=== PATIENT | male | born 1990 | race Caucasian/White ===

== ENCOUNTER 2021-10-01 14:05 | Emergency (ER) | payer SELFPAY ==
[2021-10-01 14:08] VITALS: BP 129/78; PULSE 81; RESP 16; TEMP 36.7; O2SAT 97
--- NOTE | 2021-10-01 14:15 | ED.URI ---
HPI - URI/Sore Throat General Chief Complaint: Upper Respiratory Infection Stated Complaint: Chest Congestion Time Seen by Provider: 10/01/21 14:15 Source: patient and RN notes reviewed History of Present Illness HPI Narrative: Patient is a 31-year-old male who presents the urgent care with complaints of chest congestion, runny nose, postnasal drainage and dry cough. Patient states is been going on approximately a week and a half and he has been taking Naty without much improvement. Patient denies any fevers, nausea or vomiting. Also reports of a rash under the left axilla. Patient states is been there for couple days and he has been using antibiotic ointment on it. No other acute complaints. No acute distress noted. Patient aware of the plan of care. Some parts of this dictation were generated by voice recognition software and may contain typographical and/or grammatical inaccuracies. Related Data Allergies Allergy/AdvReac Type Severity Reaction Status Date / Time No Known Allergies Allergy Unknown Unverified 10/01/21 14:38 Review of Systems Review of Systems: CONSTITUTIONAL: Denies fever, chills, or sweats. EYES: Denies visual changes, redness, or discharge. ENT: Reports of congestion, rhinorrhea, postnasal drainage CARDIOVASCULAR: Denies chest pain, palpitations, or edema. RESPIRATORY: Reports of cough without dyspnea GASTROINTESTINAL: Denies abdominal pain, nausea, vomiting, or diarrhea. GENITOURINARY: Denies dysuria or hematuria. SKIN: Reports of an itchy burning rash under the left axilla MUSCULOSKELETAL: Denies back pain, joint pain, or myalgia. NEUROLOGIC: Denies headache, numbness, or weakness. All other systems reviewed are negative, except as documented in HPI. PMFSH Comments At the time of my signature, I reviewed and agree with the nursing past medical, surgical, social, and family history. There is no relevant family history pertinent to the patient complaint. Exam Narrative: GENERAL: This is a well-nourished, well-developed patient, in no apparent distress. HEAD: normocephalic, atraumatic. EYES: PERRL. Sclera clear/white. Vision is grossly intact. EARS: External ears normal, auditory canals clear and without drainage, moderately erythemic and injected left TM. Right TM normal without perforation. Hearing grossly intact. NOSE: External nose normal with no obvious nasal discharge, nares without redness, clear to yellow rhinorrhea. THROAT: Mucous membranes moist, posterior pharynx clear. Moderate postnasal drainage NECK: Neck supple CARDIOVASCULAR: Regular rate and rhythm without murmurs, gallops, or rubs. RESPIRATORY: Bilateral upper inspiratory wheezes. Harsh cough noted throughout exam SKIN: 6 x 4 cm erythemic candidal dermatitis to the left axilla. Warm, intact with no suspicious lesions or rash, good texture and turgor. NEURO: awake, alert, and oriented to person, place and time. There were no obvious focal neurologic abnormalities. EXTREMITIES: No clubbing, cyanosis, or edema. Course Course Level of Care: Express Care Visit Vital Signs Vital signs: Vital Signs Temperature 98.1 F 10/01/21 14:08 Pulse Rate 81 10/01/21 14:08 Respiratory Rate 16 10/01/21 14:08 Blood Pressure 129/78 10/01/21 14:08 Pulse Oximetry 97 10/01/21 14:08 Temperature 98.1 F 10/01/21 14:08 Pulse Rate 81 10/01/21 14:08 Respiratory Rate 16 10/01/21 14:08 Blood Pressure 129/78 10/01/21 14:08 Pulse Oximetry 97 10/01/21 14:08 Reviewed MDM - URI/Sore Throat MDM Narrative Medical decision making narrative: Advised the patient to keep the underarm very dry. Use the nystatin powder as directed. Complete the oral antibiotic regimen for the left ear infection as directed and complete the steroid regimen as prescribed. Use the inhaler as needed for wheezes or cough. If you develop any increase in symptoms associated with chest pain or shortness of breath?go to the emergency room. Continue your mady
== END 2021-10-01 14:55 | disposition home or self-care (01) ==
PROVIDERS: Emergency Provider Nurse Practitioner Family
DX: J40 Bronchitis, not specified as acute or chronic (principal); H66.92 Otitis media, unspecified, left ear
CPT/HCPCS: 99203; G0463

== ENCOUNTER 2021-12-04 09:31 | Emergency (ER) | payer OTHER, SELFPAY ==
--- NOTE | 2021-12-04 09:35 | ED.SKABFB ---
HPI - Skin/Abscess/Foreign Bdy General Chief complaint: Skin/Abscess/Foreign Body Stated complaint: Rash and pain in right armpit Time Seen by Provider: 12/04/21 09:57 Source: patient and RN notes reviewed Mode of arrival: ambulatory Limitations: no limitations History of Present Illness HPI narrative: 31-year-old male presents concern for painful rash under his right arm. He reports the area started couple days ago and has been getting more raw and more painful. He denies any injury to the area. He reports drainage from the area. He reports he started using a new deodorant about 2 months ago. He denies fever, body aches, chills, sweats, pain in the arm itself. MD complaint: rash Related Data Allergies Allergy/AdvReac Type Severity Reaction Status Date / Time No Known Allergies Allergy Unknown Unverified 12/04/21 09:43 Review of Systems Review of Systems: CONSTITUTIONAL: Denies malaise, chills, sweats, or fever. EYES: Denies redness, or discharge. ENT: Denies rhinorrhea, congestion, swollen lips, swollen tongue CARDIOVASCULAR: Denies chest pain, palpitations, or edema. RESPIRATORY: Denies cough or dyspnea. GASTROINTESTINAL: Denies abdominal pain, nausea, vomiting SKIN: Reports painful rash in the right axilla MUSCULOSKELETAL: Denies joint painor myalgia. NEUROLOGIC: Denies headache. All systems reviewed & are unremarkable except as noted in HPI and below PMFSH Comments At time of signature, agree with nursing past medical, surgical, social and family history. There is no relevant family history pertinent to the presenting complaint Exam Narrative: GENERAL: Well-appearing, well-nourished, and in no acute distress. HEAD: Normocephalic, atraumatic. EYES: PERRLA, conjunctivae clear, and EOMI. ENT: Mucous membranes moist. Oropharynx without edema, erythema or lesions. NECK: Supple. No lymphadenopathy CHEST: Clear to auscultation. No respiratory distress. HEART: Regular rate and rhythm. SKIN: Warm, dry. Approximately 5 cm linear area of erythema, induration, excoriation with 1.5 cm area of open tissue with drainage noted, occasional vesicles. NEURO: Alert and oriented x3. PSYCH: Normal mood and affect Course Course Emergency Course: Patient is aware of diagnosis, understands and agrees to treatment plan. Anticipatory guidance given. Patient agrees to follow-up as directed and is aware of reasons to seek care at the emergency department. Portions of this record may have been created with voice recognition software Level of Care: Express Care Visit Vital Signs Vital signs: Reviewed. MDM - Skin/Abscess/Foreign Bdy MDM Narrative Medical decision making narrative: Does not appear at this time to be erythema multiforme, bullous, SJS, TEN; no evidence at this time to suggest RMSF, endocarditis or Lyme disease; patient looks well, nontoxic and is tolerating oral intake; no neurologic signs or symptoms; no headache, photophobia or neck pain; afebrile; appropriate for initial outpatient treatment; discussed the importance of follow-up, patient agrees; question, viral exanthema, contact dermatitis, allergic dermatitis, eczema, urticaria,cellulitis, yeast rash, abscess. No soft palate or uvula edema, no tongue, lip edema or other mucosal involvement, no respiratory compromise, no stridor, no wheezing, no wheezing, no history of syncope, no hypotension, no nausea, vomiting, or diarrhea. Instructed patient to go to nearest ER immediately for any worsening symptoms including but not limited to: fever, spreading rash, pain, sore throat, headache, dizziness, chest pain, trouble breathing, or any symptoms concerning to the patient. Critical Care Time Critical Care Time Critical Care Time: No Discharge Plan Discharge Clinical Impression: Skin infection Patient Disposition: Home, Self-Care Condition: Stable Instructions: Antibiotic Form, Skin Yeast Infection (ED) Additional Instructions: Wash the area twice daily wi
[2021-12-04 09:38] VITALS: BP 179/99; PULSE 103; RESP 20; TEMP 36.8; O2SAT 98
--- NOTE | 2021-12-04 10:17 | PC.NURSE ---
10:10 SILVADENE CREAM APPLIED TO WOUND.
== END 2021-12-04 10:13 | disposition home or self-care (01) ==
PROVIDERS: Emergency Provider Nurse Practitioner
DX: L08.9 Local infection of the skin and subcutaneous tissue, unspecified (principal)
CPT/HCPCS: 99213; A9270; G0463

== ENCOUNTER 2022-12-26 16:00 | Emergency (ER) | payer OTHER, SELFPAY ==
--- NOTE | 2022-12-26 16:06 | ED.SKABFB ---
HPI - Skin/Abscess/Foreign Bdy General Chief complaint: Skin/Abscess/Foreign Body Stated complaint: Swelling of Legs/Rash Time Seen by Provider: 12/26/22 16:22 Source: patient and RN notes reviewed Mode of arrival: ambulatory Limitations: no limitations History of Present Illness HPI narrative: 32-year-old male presents with concern of for bilateral lower extremity edema. He had left knee surgery in June, and the left lower extremity has been swollen since that time. He reports the right lower leg has been swollen for about a month. He denies injury or trauma. He denies warmth, tenderness. He reports he has gained about 50 lb since June. He reports some discoloration noted on the top of his right foot. He denies fever, aches, chills, sweats. Denies shortness of breath or heart palpitations. 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 He denies any open skin, rash MD complaint: other (edema) Related Data Allergies Allergy/AdvReac Type Severity Reaction Status Date / Time No Known Allergies Allergy Unknown Verified 12/26/22 16:28 Review of Systems Review of Systems: CONSTITUTIONAL: Denies malaise, chills, sweats, or fever. CARDIOVASCULAR: Denies chest pain, palpitations RESPIRATORY: Denies cough or dyspnea. SKIN: Denies rash or itching, bruising, redness, swelling. MUSCULOSKELETAL: Reports bilateral lower extremity edema NEUROLOGIC: Denies numbness, weakness All systems reviewed & are unremarkable except as noted in HPI and below PMFSH Comments At time of signature, agree with nursing past medical, surgical, social and family history. There is no relevant family history pertinent to the presenting complaint Exam Narrative: GENERAL: Well-appearing, well-nourished, and in no acute distress. HEAD: Normocephalic, atraumatic. EYES: PERRLA, conjunctivae clear NECK: Supple. CHEST: Speaks in full sentences. No respiratory distress. HEART: Regular rate and rhythm. Normal and equal peripheral pulses. EXTREMITIES: Bilateral lower extremities, ankle, feet have grossly normal strength and sensation, normal range of motion. No ecchymosis. Moderate 1+ pitting edema note to bilateral calf, ankles, feet. Normal sensation with sensitivity to light touch and pain. No tenderness. Small patch of petechiae noted to the dorsal right foot. No open wounds, no skin tenting, no atrophy, no obvious deformity, alignment normal, nearby joints and structures intact. Right distal pedal pulse palpable, left pedal pulse dopplerable, skin warm, dry, pink. Capillary refill less than 3 seconds. SKIN: Warm, dry, no rash. NEURO: Alert and oriented x3. PSYCH: Normal mood and affect Course Course Emergency Course: Patient is aware of diagnosis, understands and agrees to treatment plan. Anticipatory guidance given. Patient agrees to follow-up as directed and is aware of reasons to seek care at the emergency department. Portions of this record may have been created with voice recognition software Level of Care: Express Care Visit Vital Signs Vital signs: Reviewed. MDM - Skin/Abscess/Foreign Bdy MDM Narrative Medical decision making narrative: Exam findings show no acute concerns or changes; patient is non-toxic appearing and is in no distress. Patient is appropriate for outpatient treatment and follow-up. Differential Diagnosis Differential diagnosis: Likely cellulitis and other (edema, DVT) Critical Care Time Critical Care Time Critical Care Time: No Discharge Plan Discharge Clinical Impression: Bilateral leg edema Patient Disposition: Home, Self-Care Condition: Stable Instructions: Leg Edema (ED) Additional Instructions: 1) Please follow-up with your primary care doctor in the next 1-2 days. 2) If you have any worsening of symptoms or any other urgent concerns please go to the ER. 3) Please use compression stockings as directed. 4) Please read and follow information includ
[2022-12-26 16:08] VITALS: BP 160/90; PULSE 99; RESP 16; TEMP 36.3; O2SAT 98
== END 2022-12-26 16:43 | disposition home or self-care (01) ==
PROVIDERS: Emergency Provider Nurse Practitioner
DX: R60.0 Localized edema (principal)
CPT/HCPCS: 99213; G0463

== ENCOUNTER 2025-03-05 12:01 | Emergency (ER) | payer SELFPAY ==
[2025-03-05 12:16] VITALS: BP 152/88; PULSE 85; RESP 20; TEMP 36.6; O2SAT 99
--- NOTE | 2025-03-05 12:43 | ED_ITS ---
HPI - Dental/Oral General Chief complaint: Dental/Oral Stated complaint: Toothache Time Seen by Provider: 03/05/25 12:38 Source: patient, family () and RN notes reviewed Mode of arrival: ambulatory Limitations: no limitations History of Present Illness HPI Narrative: 34-year-old male patient presents today complaining of pain to the right anterior dental arch since last night. States he got a piece of beef jerky that poked in between a broken tooth and another tooth that then became swollen. Today his face is now swollen and his gumline is painful. Denies shortness of breath, difficulty swallowing, trismus. Currently rates pain 9.5/10. He has taken Tylenol and ibuprofen without much relief. Does not currently have a dentist. Related Data Allergies Allergy/AdvReac Type Severity Reaction Status Date / Time No Known Allergies Allergy Unknown Verified 03/05/25 12:05 [facility] Comments At time of signature, I have reviewed and agree with nursing past medical, surgical, social and family history unless otherwise noted. Please see nursing chart for further information. There is no relevant family history pertinent to the presenting complaint Exam Narrative: GENERAL: Well-appearing, well-nourished, and in no acute distress. HEAD: Normocephalic, atraumatic. EYES: EOMI. No redness or drainage. Conjunctivae normal. ENT: Mucous membranes pink and moist. Nares clear. No rhinorrhea. Poor dentition throughout. Tooth 5 is decayed. Adjacent to inch of is erythematous. There is some mild swelling of the face. No trismus. No neck swelling. NECK: Normal AROM. Supple. No lymphadenopathy. CHEST: No respiratory distress. EXTREMITIES: Normal range of motion. No edema. SKIN: Warm, dry, no rash. Capillary refill normal. Normal skin turgor. NEURO: No focal deficits. Alert and oriented x3. Gait steady. PSYCH: Normal affect. No signs of depression or anxiety. Course Course Level of Care: Express Care Visit Vital Signs Vital signs: Vital Signs Temperature 98 F 03/05/25 12:16 Pulse Rate 85 03/05/25 12:16 Respiratory Rate 20 03/05/25 12:16 Blood Pressure 152/88 H 03/05/25 12:16 Pulse Oximetry 99 03/05/25 12:16 Oxygen Delivery Room Air 03/05/25 12:16 Temperature 98 F 03/05/25 12:16 Pulse Rate 85 03/05/25 12:16 Respiratory Rate 20 03/05/25 12:16 Blood Pressure 152/88 H 03/05/25 12:16 Pulse Oximetry 99 03/05/25 12:16 Oxygen Delivery Room Air 03/05/25 12:16 Reviewed MDM - Dental/Oral MDM Narrative Medical decision making narrative: 34-year-old male patient presents today complaining of pain to the right anterior dental arch since last night. States he got a piece of beef jerky that poked in between a broken tooth and another tooth that then became swollen. Today his face is now swollen and his gumline is painful. Tooth 5 is decayed. Adjacent to inch of is erythematous. There is some mild swelling of the face. Patient will be given a prescription for amoxicillin and 3 days of prednisone to help with facial swelling. Also, a prescription for some chlorhexidine mouthw brian to help with his poor dentition. He will follow-up with a dentist as soon as possible. Patient agrees with plan. Anticipatory guidance and strict ED precautions given. Vital signs stable. Differential Diagnosis Differential diagnosis: Likely gingival abscess, dental caries, toothache, dental abscess and fracture of tooth Critical Care Time Critical Care Time Critical Care Time: No Discharge Plan Discharge Clinical Impression: Toothache, Gingivitis Patient Disposition: Home Condition: Stable Instructions: Antibiotic Form Additional Instructions: Please take the amoxicillin and prednisone as directed. Use the mouthwash as prescribed. Continue Tylenol or ibuprofen if needed for discomfort. Follow-up with a dentist as soon as possible. As discussed, please go to the ER immediately if you develop fever, difficulty breathing, swallowing, or opening your mouth properly. Patient Language: Estonian Prescriptions: New prednisone 20 mg tablet 40 mg PO DAILY 3 Days Qty: 6 0RF amoxicillin 875 mg tablet 875 mg PO Q12H 10 Days Qty: 20 0RF chlorhexidine gluconate 0.12 % mouthwash 15 ml buccal DAILY Qty: 120 0RF No Action (DME) compr.stocking,knee,long,x-lrg Misc See Rx Instructions .Route Qty: 4 0RF Rx Instructions: As directed Follow-up/Referrals: PHYSICIAN NOT ON STAFF,NONSTAFF [Primary Care Provider] Time of Disposition: 12:47
== END 2025-03-05 12:53 | disposition home or self-care (01) ==
PROVIDERS: Emergency Provider Nurse Practitioner
DX: K08.89 Other specified disorders of teeth and supporting structures (principal); K05.10 Chronic gingivitis, plaque induced
CPT/HCPCS: 99213; G0463

== ENCOUNTER 2025-04-13 08:21 | Emergency (ER) | payer MEDICAID, SELFPAY ==
[2025-04-13 08:26] VITALS: BP 192/139; PULSE 90; RESP 20; TEMP 36.5; O2SAT 100
--- OUTSIDE RECORDS SUMMARY | 2025-04-13 08:26 | XMS_ITS | Encounter Summary ---
Author Organization [facility] Address [address] [place] [address] Phone Care Team Providers Care Seo Associate Name Role Phone Isaac Gaines APRN, PRESS TENDER Primary Care Pr ovider Lesley Mendez APRN, CNP Unavailable [phone] Cholo Ledbetter MD Unavailable Reason for Visit * Reason Comments Medication Refill Encounter Details Date Type Department Care Team (Late st Contact Info) Description 08/31/2024 Refill [facility] - Family Medicine [facility] [address] [place] [id number] Isaac Gaines APRN, PRESS TENDER [address] [address] Medication Refill Social History Tobacco Use Types Packs/Day Years Used Date Smoking Tobacco: Former Cigarettes 1.5 13.1 S tarted: 03/16/2012 Smokeless Tobacco: Never Alcohol Use Standard Drinks/Week Comments Yes 0 (1 standard drink = 0.6 oz pur e alcohol) rare, 1-3 times a years Education Answer Date Recorded What is the highest level of school you have completed or the highest degree you have received? 11th grade 02/12/2023 Sexually Active Control Partners Comments Yes Sex and Gender Information Value Date Recorded Sex Assigned at Not on file Legal Sex Male 11:07 PM CDT Gender Identity Not on file Sexual Orientation Not on file documented as of this encounter Miscellaneous Notes * Telephone Encounter - Diana Choi RN - 08/31/2024 12:58 PM CDT Needs OV * Telephone Encounter - Diana Choi RN - 08/31/2024 12:58 PM CDT Per nursing clinical judgement, provider to review and approve the medication(s) order(s) if appropriate. Requested Prescriptions Pending Prescriptions Disp Refills metoprolol Succinate (TOPROL-XL) 50 MG TABLET SR 24 HR [Pharmacy Med Name: Metoprolol Succinate ER 50 MG Oral Tablet Extended Release 24 Hour] 30 Tablet 0 Sig: Take 1 tablet by mouth once daily Beta-Blockers Protocol Passed - 08/31/2024 12:58 PM Passed - BP on record in the past year Clinician-entered: BP Readings from Last 3 Encounters: 05/25/24 (!) 196/105 03/19/24 134/82 12/28/23 142/86 Patient-entered: No data recorded Passed - Visit with relevant provider in past 12 months or upcoming 90 days Recent Visits Date Type Provider Dept 10/17/23 Office Visit Isaac Gaines APRN, CNP [facility] Showing recent visits within past 365 days and meeting all other requirements Future Appointments No visits were found meeting these conditions. Showing future appointments within next 90 days and meeting all other requirements documented in this encounter Plan of Treatment Not on file documented as of this encounter Visit Diagnoses Diagnosis Primary hypertension Unspecified essential hypertension documented in this encounter Care Teams Seo Associate Relationship Specialty Start Date End Date Isaac Gaines APRN, CNP [id number] [address] PCP - General Advanced Practice Nurse 03/16/22 Lesley Mendez APRN, CNP [address] [facility] [address] [place] [address] Nurse Practitioner Advanced Practice Nurse 08/20/22 01/13/25 Cholo Ledbetter MD [address] [facility] [address] [place] [address] Consulting Physician General Surgery 10/18/23 documented as of this encounter
--- OUTSIDE RECORDS SUMMARY | 2025-04-13 08:26 | XMS_ITS | Encounter Summary ---
Author Organization [facility] Address [address] [place] [address] Phone Care Team Providers Care Digital Business Analyst Name Role Phone Isaac Gaines APRN, GENERAL STUDIES PROGRAM CHAIR Primary Care Pr ovider Lesley Mendez APRN, CNP Unavailable [phone]- [phone] Cholo Ledbetter MD Unavailable Reason for Visit * Reason Comments Medication Refill Encounter Details Date Type Department Care Team (Late st Contact Info) Description 04/25/2023 Refill [facility] - Family Medicine - [place] [address] [place] [id number] Isaac Gaines APRN, GENERAL STUDIES PROGRAM CHAIR [address] [address] Medication Refill Social History Tobacco Use Types Packs/Day Years Used Date Smoking Tobacco: Every Day Cigarettes 1.5 13.1 Started: 03/16/2012 Smokeless Tobacco: Never Alcohol Use Standard [...] encounter Miscellaneous Notes * Telephone Encounter - Martita Rossi RMA - 04/29/2023 10:35 AM MOLD MAINTENANCE TECHNICIAN scheduled MAINTENANCE TECHNICIAN * Telephone Encounter - Palma Gonzalez APRN, CNP - 04/26/2023 1:38 PM MOLD MAINTENANCE TECHNICIAN Needs appointment prior to refill with PCP MAINTENANCE TECHNICIAN * Telephone Encounter - Kira Leon RN - 04/26/2023 9:30 AM MOLD MAINTENANCE TECHNICIAN Medication failed the protocol, provider to review and approve the medication order if appropriate. Requested Prescriptions Pending Prescriptions Disp Refills Trulicity 1.5 MG/0.5ML Solution Pen-injector [Pharmacy Med Name: Trulicity 1.5 MG/0.5ML Subcutaneous Solution Pen-injector] 4 mL 0 Sig: INJECT 1.5 MG SUBCUTANEOUSLY ONCE A WEEK GLP-1 Agonists Protocol Failed - 04/25/2023 5:16 PM Failed - Lipid panel result on file in past 12 months LDL Date Value Ref Range Status 03/16/2022 86 5 - 130 mg/dL Final HDL CHOLESTEROL Date Value Ref Range Status 03/16/2022 29.7 (L) >40 mg/dL Final CHOLESTEROL Date Value Ref Range Status 03/16/2022 134 <=200 mg/dL Final TRIGLYCERIDES Date Value Ref Range Status 03/16/2022 90 <150 mg/dL Final VLDL Date Value Ref Range Status 03/16/2022 18 5 - 55 mg/dL Final CHOL/HDL RATIO Date Value Ref Range Status 03/16/2022 4.5 (H) 0.0 - 4.4 Final NON-HDL CHOLESTEROL Date Value Ref Range Status 03/16/2022 104.3 <130 mg/dL Final Failed - HgA1C result on record in past 6 months No results found for: HGBA1C Passed - Visit with relevant provider in past 6 months or upcoming 90 days Recent Visits Date Type Provider Dept 03/12/23 Office Visit Justus Dolan MD [facility] 02/12/23 Office Visit Isaac Gaines APRN, CNP [facility] 01/04/23 Office Visit [facility]aines APRN, [facility] Showing recent visits within past 182 days and meeting all other requirements Future Appointments No visits were found meeting these conditions. Showing future appointments within next 90 days and meeting all other requirements Passed - GFR on record in past 6 months GFR, EST. NONAFRICAN Date Value Ref Range Status 01/04/2023 >60 >=60 Final MAINTENANCE TECHNICIAN documented in this encounter Plan of Treatment Not on file documented as of this encounter Visit Diagnoses Diagnosis Prediabetes Other abnormal glucose documented in this encounter Care Teams Digital Business Analyst Relationship Specialty Start Date End Date Isaac Gaines APRN, [facility] [address] [facility] [address] [place] [address] PCP - General Advanced Practice Nurse 03/16/22 Lesley Mendez APRN, CNP [address] [facility] [address] [place] [address] Nurse Practitioner Advanced Practice Nurse 08/20/22 01/13/25 Cholo Ledbetter MD [address] [facility] [address] [place] [address] Consulting Physician General Surgery 10/18/23 documented as of this encounter
--- OUTSIDE RECORDS SUMMARY | 2025-04-13 08:26 | XMS_ITS | Clinical Summary ---
Author Organization [facility] [employer] [place] Address [address] [address] Care Team Providers Care Count Room Clerk Name Role Phone Unavailable Primary Care Provider Unavailabl e Allergies No known active allergies Medications No known medications Active Problems Problem Noted Date Diagnosed Date Morbid obesity with body mass index of 40.0-49.9 04/22/2020 Cigarette dependence 04/22/2020 Family History Medical History Relation Name Comments Other Daughter non verbal Diabetes Father Glaucoma Father Hypertension Father Stomach Cancer Maternal Grandfather Heart Failure Maternal Grandmother No Known Problems Mother Unknown Paternal Grandfather Cancer Paternal Grandmother Celiac Disease Sister Heart defect Son Other Son Relation Name Status Comments Daughter Alive Father Alive Maternal Grandfather Maternal Grandmother Alive Mother Alive Paternal Grandfather Paternal Grandmother Sister Alive Son Alive Social History Tobacco Use Types Packs/Day Years Used Date Smoking Tobacco: Every Day Cigarettes Smokeless Tobacco: Former Alcohol Use Standard Drinks/Week Comments Yes 0 (1 standard drink = 0.6 oz pur e alcohol) Sex and Gender Information Value Date Recorded Sex Assigned at Not on file Legal Sex Male 9:19 AM CUSTOMER SERVICE REP Gender Identity Not on file Sexual Orientation Not on file Last Filed Vital Signs Vital Sign Reading Time Taken Comments Blood Pressure 160/100 04/22/2020 1:29 PM CUSTOMER SERVICE REP Pulse 99 04/22/2020 1:02 PM CUSTOMER SERVICE REP Temperature 36.9 C (98.5 F) 04/22/2020 1:02 PM CUSTOMER SERVICE REP Respiratory Rate 18 04/22/2020 1:02 PM CUSTOMER SERVICE REP Oxygen Saturation 97% 04/22/2020 1:02 PM CUSTOMER SERVICE REP Inhaled Oxygen Concentration - - Weight 156.9 kg (346 lb) 04/22/2020 1:02 PM CUSTOMER SERVICE REP Height 180.3 cm (5' 11) 04/22/2020 1:02 PM CUSTOMER SERVICE REP Body Mass Index 48.26 04/22/2020 1:02 PM CUSTOMER SERVICE REP Plan of Treatment Health Maintenance Due Date Last Done Comments DTAP/TDAP/TD VACCINES (5 - T d or Tdap) 05/01/2015 05/01/2005, 10/31/1993, 1992, Additional history exists HPV VACCINES (1 - 3-dose SCD M series) 2019 INFLUENZA VACCINE (#1) 2024 HEPATITIS B VACCINES Completed 08/07/1993, 04/27/1993, 01/25/1993 Insurance WORK[employer]
--- OUTSIDE RECORDS SUMMARY | 2025-04-13 08:26 | XMS_ITS | Clinical Summary ---
Author Organization [facility] Address [address] [place] [address] Phone Care Team Providers Care Television Receiver Analyzer Name Role Phone Isaac Gaines APRN, [employer] Primary Care Pr ovider Cholo Ledbetter MD Unavailable Allergies No known active allergies Medications cetirizine (ZyrTEC) 10 MG Tablet Take 10 mg by mouth daily. Active neomycin-polymyx in-dexamethasone (MAXITROL) 3.5-67541-5.1 SuspensionIndica tions:Other infective acute otitis externa of both ears Place 2 Drops in both ears 4 times daily. 5 mL 4 Active Additional Information Patient not taking.Reported on 01/04/2025 naproxen (NAPROSYN) 500 MG Tablet Take 1 Tablet by mouth 2 times daily as needed for Mild or more severe pain. 20 Tablet 5 Active Additional Information Patient not taking.Reported on 01/04/2025 aspirin EC (EQ Aspirin Adult Low Dose) 81 MG Tablet Delayed ResponseIndicati ons:Erythrocytos is Take 1 Tablet by mouth daily. 30 Tablet 1 5 Active Additional Information Patient not taking.Reported on 01/04/2025 metoprolol Succinate (TOPROL-XL) 50 MG TABLET SR 24 HRIndications:Pr imary hypertension Take 1 Tablet by mouth daily. 30 Tablet 1 5 Active Additional Information Patient not taking.Reported on 01/04/2025 Active Problems Problem Noted Date Diagnosed Date Cough 03/12/2023 Chest congestion 03/12/2023 Dyspnea 03/12/2023 Tobacco abuse 03/12/2023 Hypertension 02/12/2023 Class 3 severe obesity due t o excess calories with serious comorbidity and body mass index (BMI) of 50.0 to 59.9 in adult 08/20/2022 AZIZA (obstructive sleep apnea) 08/02/2022 Tear of medial meniscus of left knee, initial en counter 07/13/2022 Patellar malalignment syndrome of left knee 06/21 Personal history of tobacco use 03/16/2022 Immunizations Immunization Administration Dates Next Due DTAP VACCINE, UNSPECIFIED FORMULATION 1992 DTP-Hib 10/31/1993,1992,1992 Hepatitis B Vaccine, Pediatric/adolescent 08/07/1993,04/27/1993,01/25/1993 MMR Vaccine 08/11/1997,08/07/1993 OPV 05/31/1995, 4,1992,1992 TDAP Vaccine 05/01/2005 Family History Medical History Relation Name Comments Blindness Father Diabetes Father Hypertension Father No Known Problems Mother No Known Problems Sister Relation Name Status Comments Father Alive Mother Alive Sister Alive Social History Tobacco Use Types Packs/Day Years Used Date Smoking Tobacco: Former Cigarettes 1.5 13.1 S tarted: 03/16/2012 Smokeless Tobacco: Never Tobacco Cessation:Counseling Given: Not Answered Alcohol Use Standard Drinks/Week Comments Yes 0 [...] Sign Reading Time Taken Comments Blood Pressure 160/90 01/04/2025 5:50 PM CDT Pulse 105 01/04/2025 5:50 PM CDT Temperature 37.1 C (98.7 F) 01/04/2025 5:50 PM CDT Respiratory Rate 18 01/04/2025 5:50 PM CDT Oxygen Saturation 95% 01/04/2025 5:50 PM CDT Inhaled Oxygen Concentration - - Weight 172.4 kg (380 lb) 05/25/2024 12:43 PM CODING AUDITOR Height 180.3 cm (5' 11) 05/25/2024 12:43 PM CODING AUDITOR Body Mass Index 53 05/25/2024 12:43 PM CODING AUDITOR Plan of Treatment Health Maintenance Due Date Last Done Comments Hepatitis C Virus (HCV) Screening 1992 Varicella Immunization (1 of 2 - 13+ 2-dose series) 2005 DTaP/Tdap/Td Immunization (6 - Td or Tdap) 05/01/2015 05/01/2005, 10/31/1993, 1992, Additional history exists Human Papillomavirus (HPV) Immunization (1 - 3-dose SCDM series) 2019 Influenza Immunization (#1) 2025 SARS-COV-2 Immunization ( season) 2025 Respiratory Syncytial Virus (RSV) Immunization (Adult) (1 - 1-dose 75+ series) 2067 Hepatitis B Immunization Completed 994, 04/27/1993, 01/25/1993 Meningococcal Immunization (ACWY) Aged Out No longer eligible based on patient's age to complete this topic Pneumococcal Immunization Combined Aged Out No longer eligible based on patient's age to complete this topic Rotavirus Immunization Aged Out No lo nger eligible based on patient's age to complete this topic Insurance [facility] Care Teams Television Receiver Analyzer Relationship Specialty Start Date End Date Isaac Gaines APRN, [employer] [address] [facility] [address] [place] [address] PCP - General Advanced Practice Nurse 03/16/22 Cholo Ledbetter MD [address] [facility] [address] [place] [id number] Consulting Physician General Surgery 10/18/23
--- NOTE | 2025-04-13 08:36 | ED.EAR ---
HPI - Ear Problem General Chief complaint: Ear Stated complaint: Tooth Pain/Left Ear Pain Time Seen by Provider: 04/13/25 08:30 Source: patient Mode of arrival: ambulatory Limitations: no limitations History of Present Illness HPI Narrative: Renny is a 34-year-old male patient presenting to the clinic today with complaints of left ear pain possible dental infection. He reports this is been going off and on for several months. States he has and episodes of stabbing pain in the ear and feels as though he may have swimmer's ear. The ear feels clogged. Is concerned that he may have a dental infection causing his symptoms. Denies any dental pain currently but states that the does radiate into his left upper maxilla. Rates his pain a 3/10. Has been taking Tylenol and ibuprofen for symptoms. Related Data Home Medications ?Medication ?Instructions ?Recorded ?Confirmed ?Last Taken ?Type Zyrtec 04/13/25 Unknown History Allergies Allergy/AdvReac Type Severity Reaction Status Date / Time No Known Allergies Allergy Unknown Verified 04/13/25 08:33 Review of Systems Review of Systems: Pertinent positives per HPI. Patient denies any fever, chills, rash, headache, visual changes, dizziness, cough, runny nose, sore throat, shortness of breath, chest pain, palpitations, nausea, vomiting, diarrhea, constipation, abdominal pain, or any urinary issues. PMFSH Comments At the time of my signature, I reviewed and agree with the nursing past medical, surgical, social, and family history. There is no relevant family history pertinent to the patient complaint. Exam Narrative: General: Well-developed, morbidly obese, in no apparent distress Head: Normocephalic, atraumatic Eyes: Pupils equally round and reactive to light bilaterally, EOM intact, sclera and conjunctive clear, no discharge, lids normal Ears: Right TMs intact and clear, left TM intact, mild bulging, fluid noted behind the left TM, ear canals clear, no drainage, grossly hearing normal. Nose: Nares patent, no discharge, no inflammation, no sinus tenderness. Mouth: Oropharynx without lesions or masses, poor dentition with multiple decayed teeth, MMM. No tenderness to palpation over the left upper teeth, no gingival swelling or redness Neck: Supple, trachea midline, no enlargement of anterior or posterior cervical nodes, no thyroid masses or goiter palpable. Cardio: Regular rate and rhythm, s1 and s2 normal, no murmur appreciated. Resp: Clear to auscultation bilaterally anteriorly and posteriorly, no rhonchi, rales, wheezing or rubs Course Course Emergency Course: Portions of this record may have been created with voice recognition software. Level of Care: Express Care Visit Vital Signs Vital signs: Vital Signs Temperature 36.5 C 04/13/25 08:26 Pulse Rate 90 04/13/25 08:26 Respiratory Rate 20 04/13/25 08:26 Blood Pressure 192/139 H 04/13/25 08:26 Pulse Oximetry 100 04/13/25 08:26 Oxygen Delivery Room Air 04/13/25 08:26 Temperature 36.5 C 04/13/25 08:26 Pulse Rate 90 04/13/25 08:26 Respiratory Rate 20 04/13/25 08:26 Blood Pressure 192/139 H 04/13/25 08:26 Pulse Oximetry 100 04/13/25 08:26 Oxygen Delivery Room Air 04/13/25 08:26 Vital signs reviewed Medical Decision Making MDM Narrative Medical decision making narrative: At the time of visit patient is resting comfortably on the exam table. Patient appears to be nontoxic. Complaints of left ear pain possible dental infection. He reports this is been going off and on for several months. States he has and episodes of stabbing pain in the ear and feels as though he may have swimmer's ear. The ear feels clogged. Is concerned that he may have a dental infection causing his symptoms. Denies any dental pain currently but states that the does radiate into his left upper maxilla. Rates his pain a 3/10. Has been taking Tylenol and ibuprofen for symptoms. On exam patient has right TMs intact and clear, left TM intact, mild bulging, fluid noted behind the TM, multiple dental decay, no tenderness to palpation of the teeth, no obvious abscess or gingival swelling. No nasal drainage or inflammation. Blood pressure initially was 192/139 on the electronic blood pressure machine. Blood pressure was retaken and was 160/120 manually. Patient denies any dizziness, headache, blurry vision, chest pain, or shortness of breath. Has been on blood pressure medicines in the past but discontinued these on his own. Recommend following up with his PCP as soon as possible for reinstatement of blood pressure medications. Risk of untreated high blood pressure was reviewed with the patient and he voiced understanding. Plan: I suspect patient has acute serous otitis media. Prescription for prednisone was sent to the pharmacy. Recommend Flonase and [id number] antihistamines. Recommend follow-up with his PCP as soon as possible to reinstate his blood pressure medications. Risk of untreated hypertension was reviewed with the patient he voiced understanding. Supportive measures were discussed with the patient and they voiced understanding discharge instructions and agrees to treatment plan. Return precautions reviewed Differential Diagnosis Differential Diagnosis: Otitis media, otitis externa, eustachian tube dysfunction, cerumen impaction, upper respiratory infection, serous otitis, dental infection, mastoiditis Vital Signs Vital Signs: Vital Signs Temperature 36.5 C 04/13/25 08:26 Pulse Rate 90 04/13/25 08:26 Respiratory Rate 20 04/13/25 08:26 Blood Pressure 192/139 H 04/13/25 08:26 Pulse Oximetry 100 04/13/25 08:26 Oxygen Delivery Room Air 04/13/25 08:26 Temperature 36.5 C 04/13/25 08:26 Pulse Rate 90 04/13/25 08:26 Respiratory Rate 20 04/13/25 08:26 Blood Pressure 192/139 H 04/13/25 08:26 Pulse Oximetry 100 04/13/25 08:26 Oxygen Delivery Room Air 04/13/25 08:26 Discharge Plan Discharge Clinical Impression: Left acute serous otitis media Patient Disposition: Home Condition: Stable Instructions: Antibiotic Form, Earache (ED), Fluid In The Ear (Serous Otitis Media) (ED) Additional Instructions: Take any prescribed medications only as directed-prednisone Tylenol/motrin as needed for pain May take jeqf-rdl-[id number] antihistamine such as Zyrtec or Claritin May use Flonase [id number]-kokffky 1 spray in each near daily. May use heating pad to alleviate pain If you get recurrent ear infections it may be warranted to follow up with ENT. Follow up with your PCP in 3-5 days if symptoms persist. You have an elevated blood pressure in the clinic today and I recommend follow-up with primary care physician to have this reevaluated within the next week if symptoms persist. [place] [employer] guidelines state that normal blood pressure is 120/80 or less. Anything over 120/80 is considered elevated and should be monitored. You may need to decrease you salt intake and eat a heart healthy diet to help lower you blood pressure, other treatments would include decreasing stress, weight loss, stop caffeine, and quit smoking. Your primary care provider can determine whether you need to start antihypertensive medications. Untreated high blood pressure can cause dizziness, headaches, visual changes, blindness, kidney failure, stroke, heart attack, and male impotence. Patient Language: Sudanese Prescriptions: New prednisone 20 mg tablet 40 mg PO DAILY 5 Days Qty: 10 0RF No Action (DME) compr.stocking,knee,long,x-lrg Misc See Rx Instructions .Route Qty: 4 0RF [facility]Referrals: PHYSICIAN NOT ON STAFF,NONSTAFF [Primary Care Provider] Time of Disposition: 08:37 Quality NIHSS Nursing Documentation ED NIHSS nursing documentation: reviewed/agree
[2025-04-13 08:48] VITALS: BP 160/120
== END 2025-04-13 08:55 | disposition home or self-care (01) ==
PROVIDERS: Emergency Provider Nurse Practitioner Family
DX: H65.02 Acute serous otitis media, left ear (principal)
CPT/HCPCS: 99213; G0463